=== PATIENT | male | born 1990 | race Caucasian/White ===

== ENCOUNTER 2021-04-24 19:45 | Emergency (ER) | payer OTHER, SELFPAY ==
--- NOTE | ~2021-04-24 | XR_ITS ---
Indication: Trauma EXAMINATION: Right second finger 2 views. Findings; No fracture or dislocation. XR/XR finger RT min 2V IMPRESSION: No fracture or dislocation right second finger.
[2021-04-24 19:53] VITALS: BP 132/74; PULSE 79; RESP 16; TEMP 36.6; O2SAT 96; BMI 21.9
--- NOTE | 2021-04-24 20:33 | ED_ITS ---
HPI - Extremity Problem General Chief complaint: Extremity Injury, Upper Stated complaint: FINGER INJ Time Seen by Provider: 04/24/21 20:33 Source: patient Mode of arrival: ambulatory Limitations: no limitations History of Present Illness HPI Narrative: state was playing softball and bent /hyper extended right index finger. Pain in the right index finger otherwise no other injuries. MD Complaint: extremity pain Onset (ago): minute(s) ( 45 minutes prior to arrival) Pain Consistency: constant Location: right Quality: aching Radiation: none Relieving factors: immobilization Exacerbating factors: palpation ( mid finger) Associated symptoms: denies other symptoms Review of Systems Review of Systems: otherwise 12 point review of system is negative Yes all other systems are reviewed and are negative FOR[facility]LY [facility] Past Medical History Medical History No known health problems Social History Social History Advance Directives: No Physical Exam Vital Signs: Vital Signs: Last Vital Signs Temp 97.8 F 04/24/21 19:53 Pulse 79 04/24/21 19:53 Resp 16 04/24/21 19:53 BP 132/74 04/24/21 19:53 Pulse Ox 96 04/24/21 19:53 Body Mass Index 21.9 reviewed Const: General: cooperative and healthy appearing; No acute distress or intoxicated appearing Nutritional Appearance: average body habitus Orientation/consciousness: patient oriented x3 HENMT: Head: Yes normal to inspection Ears: hearing grossly normal bilaterally Resp: Auscultation: clear to auscultation bilaterally Cardio: Rhythm: regular rhythm Heart sounds: S1 normal heart sound present and S2 normal heart sound present Skin: General skin exam: no rashes or lesions noted Neuro: General: patient oriented x3 Extrem: General: Yes normal to inspection Right upper extremity: full ROM and Extremity exam: right hand Details: normal to inspection and tenderness Location: of the 2nd digit ( no obvious swelling or deformity or signs of infection) Location: at the middle phalanx Course Reevaluation(s) Reevaluation #1: x-ray without fracture, AP consistent with fingers sprain, finger splint home care, return, follow-up instructions per appears stable for discharge. MDM - Extremity (Nontraumatic) Imaging Data finger x-ray: Radiologist's impression: [address] [id number] ReportSigned Patient: Luna,Ju RMR#: [id number]: 1990Acct:[id number]/Sex: 30 / MADM Date: 04/24/21Loc: HO.EDAttending Dr: Ordering Physician: Generic ED Physician Date of Service: 04/24/21 Procedure(s): XR finger RT min 2V Accession Number(s): [id number] cc: Generic ED Physician~ Indication: Trauma EXAMINATION: Right second finger 2 views. Findings; No fracture or dislocation. XR/XR finger RT min 2V IMPRESSION: No fracture or dislocation right second finger. 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
== END 2021-04-24 20:43 | disposition home or self-care (01) ==
PROVIDERS: Emergency Provider Internal Medicine; PCP Internal Medicine
DX: S63.610A Unspecified sprain of right index finger, initial encounter (principal); W21.07XA Struck by softball, initial encounter; Y93.64 Activity, baseball; Y92.320 Baseball field as the place of occurrence of the external cause; Y99.9 Unspecified external cause status
CPT/HCPCS: 29130; 73140; 99283